=== PATIENT | male | born 1950 | race Caucasian/White ===

== ENCOUNTER 2025-05-10 07:57 | Emergency (ER) | payer MEDICARE, BC, SELFPAY ==
[2025-05-10 08:18] VITALS: BP 150/97; PULSE 70; RESP 18; TEMP 36.8; O2SAT 99
--- NOTE | 2025-05-10 08:38 | ED_ITS ---
HPI - URI/Sore Throat General Chief Complaint: Upper Respiratory Infection Stated Complaint: sinus Time Seen by Provider: 05/10/25 08:22 Source: patient and RN notes reviewed Mode of arrival: ambulatory Limitations: no limitations History of Present Illness HPI Narrative: 74-year-old male patient presents today with a 3 day history of productive cough, rhinorrhea, nasal congestion, postnasal drip. Symptoms are worse at night. It is denies fever, shortness of breath, chest pain. He has been taking Advil cold and Sinus and using an Afrin like a nasal spray. States these [id number] medications are helpful during the day but do not help much at night. Denies history of asthma or COPD. His a nonsmoker Related Data Home Medications ?Medication ?Instructions ?Recorded ?Confirmed ?Last Taken ?Type levothyroxine 05/10/25 Unknown History lomasatan 05/10/25 Unknown History omeprazole 05/10/25 Unknown History prevagen 05/10/25 Unknown History rosuvastatin 05/10/25 Unknown History Allergies Allergy/AdvReac Type Severity Reaction Status Date / Time No Known Allergies Allergy Verified 05/10/25 08:20 [facility] Comments At time of signature, I have reviewed and agree with nursing past medical, surgical, social and family history unless otherwise noted. Please see nursing chart for further information. There is no relevant family history pertinent to the presenting complaint Exam Narrative: GENERAL: Mildly ill-appearing, well-nourished, and in no acute distress. HEAD: Normocephalic, atraumatic. EYES: EOMI. No redness or drainage. Conjunctivae normal. ENT: Mucous membranes pink and moist. Nares congested with rhinorrhea. TMs normal bilaterally. Throat normal. Uvula midline. NECK: Normal AROM. Supple. No lymphadenopathy. CHEST: No respiratory distress. Clear to auscultation. HEART: Regular rate and rhythm. No murmur appreciated. EXTREMITIES: Normal range of motion. No edema. SKIN: Warm, dry, no rash. Capillary refill normal. Normal skin turgor. NEURO: No focal deficits. Alert and oriented x3. Gait steady. PSYCH: Normal affect. No signs of depression or anxiety. Course Course Level of Care: Express Care Visit Vital Signs Vital signs: Vital Signs Temperature 98.2 F 05/10/25 08:18 Pulse Rate 70 05/10/25 08:18 Respiratory Rate 18 11/24/25 08:18 Blood Pressure 150/97 H 05/10/25 08:18 Pulse Oximetry 99 05/10/25 08:18 Oxygen Delivery Room Air 05/10/25 08:18 Temperature 98.2 F 05/10/25 08:18 Pulse Rate 70 05/10/25 08:18 Respiratory Rate 18 05/10/25 08:18 Blood Pressure 150/97 H 05/10/25 08:18 Pulse Oximetry 99 05/10/25 08:18 Oxygen Delivery Room Air 05/10/25 08:18 Reviewed MDM - URI/Sore Throat MDM Narrative Medical decision making narrative: 74-year-old male patient presents today with a 3 day history of productive cough, rhinorrhea, nasal congestion, postnasal drip. Symptoms are worse at night. It is denies fever, shortness of breath, chest pain. He has been taking Advil cold and Sinus and using an Afrin like a nasal spray. States these [id number] medications are helpful during the day but do not help much at night. Denies history of asthma or COPD. His a nonsmoker. Upon exam, patient is mildly ill appearing some nasal congestion, rhinorrhea. Symptoms likely viral in etiology. Discussed [id number]-[id number] medication use and duration of illness. Discussed that the oxymetazoline nasal spray that patient is using likely needs to be discontinued after 3-4 days if use it is due to risk of rhinitis medicamentosa. Suggest switching over to Flonase or saline nasal spray. Patient agrees. No prescription medications indicated at this time. Anticipatory guidance given. Vital signs stable with mildly elevated blood pressure. Differential Diagnosis Differential diagnosis: Likely upper respiratory infection, sinusitis, viral infection, bronchitis and other (Pneumonia) Critical Care Time Critical Care Time Critical Care Time: No Discharge Plan Discharge Clinical Impression: Upper respiratory infection Qualifiers: URI type: unspecified URI Qualified Code(s): J06.9 - Acute upper respiratory infection, unspecified Patient Disposition: Home Condition: Stable Instructions: Upper Respiratory Infection (DC) Additional Instructions: Your symptoms are likely due to a viral illness, which is not treated with antibiotics. Virus symptoms can last for up to 7-10days. Take Tylenol or ibuprofen for pain or fever. Please discontinue use of the Mucinex nasal spray that you have been using due to risk of rebound congestion. Consider switching over to either Flonase or saline nasal spray. You may consider using the saline nasal spray several times before bed to break up nasal congestion and postnasal drainage as well. Rest and stay hydrated. Follow up with your PCP in 7 days if symptoms are not improving. Go to the ER immediately if you develop shortness of breath, difficulty swallowing, or any other concerning symptoms. Patient Language: Icelandic Prescriptions: No Action levothyroxine omeprazole rosuvastatin prevagen lomasatan Follow-up/Referrals: UNKNOWN,DOCTOR [Primary Care Provider] Time of Disposition: 08:43
== END 2025-05-10 08:50 | disposition home or self-care (01) ==
PROVIDERS: Emergency Provider Nurse Practitioner
DX: J06.9 Acute upper respiratory infection, unspecified (principal); E78.00 Pure hypercholesterolemia, unspecified; E03.9 Hypothyroidism, unspecified
CPT/HCPCS: 99211; G0463